=== PATIENT | female | born 1965 | race Caucasian/White ===

== ENCOUNTER → 2016-05-21 | Outpatient (CLI) | payer OTHER ==
[~2016-05-21] MED LIST: AMOXICILLIN500 MG PO; ANAPROX DS550 MG PO; ANTIVERT/2525 MG PO; AUGMENTIN 875 M1 TAB PO; BACTRIM DS 8001 TA1 PO; CATAFLAM50 MG PO; CIPRO250 MG PO; CIPRODEX 0.3%-7.5 ML OT; CIPROFLOXACIN500 MG PO; CLARITIN10 MG PO; COMPAZINE10 MG PO; CYCLOBENZAPRINE10 MG PO; CYCLOBENZAPRINE5 M3 PO; DAYPRO600 M1 PO; DIFLUCAN150 MG PO; FLAGYL500 MG PO; FLEXERIL10 MG PO; FLONASE 0.05% 121 EA NAS; FLONASE ALLERG9.9 ML NAS; FLONASE0.05 MG/AC NS; HYDROCODONE BIT1 T11 PO; IRON FERROUS S325 MG PO; LEVAQUIN750 M1 PO; LIDOCAINE HCL; LISINOPRIL; LISINOPRIL10 MG PO; LOMOTIL 0.025 M1 TA1 PO; MACROBID100 M1 PO; MEDROL DOSEPAK4 MG PO; METFORMIN500 MG PO; MOBIC7.5 MG PO; MOTRIN,RUFEN800 MG PO; MOTRIN600 MG PO; MOTRIN800 MG PO; NAPROSYN500 MG PO; OMNICEF300 MG PO; PERCOCET 325 MG1 TA2 PO; PERCOCET 325 MG1 TA6 PO; PREDNISONE10 MG PO; PROVERA10 MG PO; PROZAC20 MG PO; ROBITUSSIN AC 110 ML PO; TRAMADOL HCL50 MG PO; TRIMOX500 MG PO; VENTOLIN H0.09 MG/AC INH; VIBRAMYCIN100 MG PO; VICODIN 5/500 505 MG PO; XANAX0.25 MG PO; ZANTAC150 MG PO; ZITHROMAX Z PA250 MG PO; ZOFRAN ODT4 MG SL; ZYRTEC10 M2 PO; ZYRTEC10 MG PO
== END | disposition home or self-care (01) ==
LOC: RAD 17:18
DX: M54.2 Cervicalgia (principal)

== ENCOUNTER → 2016-05-31 | Outpatient (CLI) | payer OTHER ==
[~2016-05-31] MED LIST changes: +FERROUS SULFAT324 M1 PO; +ZOCOR20 MG PO
--- NOTE | ~2016-05-31 | ST ---
[place], [place] EXERCISE STRESS TEST REPORT NAME: VALERIE HENSLEY UNIT #: [id number] ROOM: DOCTOR: TETE HANNA MD BIRTHDATE: [birth year] DOS: 05/31/2016 PHARMACOLOGIC MYOCARDIAL STRESS TEST INDICATIONS: Chest pressure, diabetes, cigarette abuse, chronic left bundle branch block. PROCEDURE: The patient was given a rapid infusion of regadenoson 0.4 mg intravenously followed by a saline flush. She experienced headache, breathlessness and nausea. Symptoms resolved spontaneously. Her resting heart rate of 70 penny to 113. The resting blood pressure of 144/96 fell to 136/88. She was in left bundle branch block throughout the study. 40 seconds after the infusion of regadenoson, she was given radionuclide intravenously. IMPRESSION: 1. Well tolerated infusion of regadenoson. 2. Left bundle branch block. 3. Radionuclide injected. Please see the separate imaging report for further details of the patient's stress test results. TETE HANNA MD CM:STRESS:EXERCISE STRESS TEST REPORT [id number] TETE HANNA MD
== END | disposition home or self-care (01) ==
LOC: CARD 05-30 13:09
DX: I44.7 Left bundle-branch block, unspecified (principal); E11.9 Type 2 diabetes mellitus without complications; R07.2 Precordial pain; R07.89 Other chest pain; M54.2 Cervicalgia; I51.9 Heart disease, unspecified; Z72.0 Tobacco use

== ENCOUNTER 2016-06-08 07:44 | Emergency (ER) | payer OTHER ==
[2016-06-08 09:20] VITALS: BP 152/84
[2016-06-08] MEDS ORDERED: IBUPROFEN600 MG PO (09:39)
== END 2016-06-08 09:46 | disposition home or self-care (01) ==
LOC: ED 07:44
DX: S63.502A Unspecified sprain of left wrist, initial encounter (principal); F17.200 Nicotine dependence, unspecified, uncomplicated; Z98.51 Tubal ligation status; Z90.49 Acquired absence of other specified parts of digestive tract; Z79.899 Other long term (current) drug therapy; W17.89XA Other fall from one level to another, initial encounter; Y93.44 Activity, trampolining; Y92.89 Other specified places as the place of occurrence of the external cause; Y99.9 Unspecified external cause status

== ENCOUNTER 2016-06-23 09:02 | Emergency (ER) | payer OTHER ==
[~2016-06-23 09:02] MED LIST changes: +IBUPROFEN600 MG PO
[2016-06-23 09:21] LABS: BILIRUBIN NEGATIVE (NEGATIVE); BLOOD 1+ (NEGATIVE); CLARITY CLOUDY (CLEAR); COLOR STRAW (YELLOW); GLUCOSE NEGATIVE (NEGATIVE); KETONE NEGATIVE (NEGATIVE); LEUKO ESTERASE 3+ (NEGATIVE); NITRITE NEGATIVE (NEGATIVE); PROTEIN NEGATIVE (NEGATIVE); SPECIFIC GRAVITY <= 1.005 (1.005-1.030); UROBILINOGEN 0.2 E.U./dl (0.2-1.0)
[2016-06-23 09:32] LABS: BACTERIA 1+; EPITHELIAL CELLS 20-30; URINE REFLEX COMMENT YES (NO); WBC 31-40 wbc/hpf (0-5)
[2016-06-23] MEDS ORDERED: MACROBID100 M1 PO (09:36)
[2016-06-23 09:42] VITALS: BP 160/90
== END 2016-06-23 09:43 | disposition home or self-care (01) ==
LOC: ED 09:02
PROVIDERS: Nurse Practitioner Family
DX: N39.0 Urinary tract infection, site not specified (principal); R03.0 Elevated blood-pressure reading, without diagnosis of hypertension; F17.200 Nicotine dependence, unspecified, uncomplicated; Z90.49 Acquired absence of other specified parts of digestive tract

== ENCOUNTER 2016-08-24 19:40 | Emergency (ER) | payer OTHER ==
[~2016-08-24] VITALS: Ht 154.9 cm; Wt 72.6 kg
[2016-08-24 19:53] VITALS: BP 140/80
[2016-08-24] MEDS ORDERED: CYCLOBENZAPRINE10 MG PO (20:03)
[2016-08-24] MEDS ORDERED: PREDNISONE10 MG PO (20:03)
== END 2016-08-24 20:11 | disposition home or self-care (01) ==
LOC: ED 19:40
DX: L25.9 Unspecified contact dermatitis, unspecified cause (principal); M54.30 Sciatica, unspecified side; M25.552 Pain in left hip; F17.200 Nicotine dependence, unspecified, uncomplicated; Z79.899 Other long term (current) drug therapy

== ENCOUNTER → 2016-12-05 | Outpatient (CLI) | payer OTHER | END | disposition home or self-care (01) | LOC: RAD 13:21 | DX: M47.896 Other spondylosis, lumbar region (principal); M41.84 Other forms of scoliosis, thoracic region; M41.86 Other forms of scoliosis, lumbar region; M48.07 Spinal stenosis, lumbosacral region; M16.12 Unilateral primary osteoarthritis, left hip; M76.9 Unspecified enthesopathy, lower limb, excluding foot ==

== ENCOUNTER 2016-12-06 16:58 | Emergency (ER) | payer OTHER ==
[~2016-12-06] VITALS: Ht 154.9 cm; Wt 70.3 kg
[2016-12-06 17:01] VITALS: BP 161/90
== END 2016-12-06 19:45 | disposition home or self-care (01) ==
LOC: ED 16:58
DX: S71.112A Laceration without foreign body, left thigh, initial encounter (principal); F17.200 Nicotine dependence, unspecified, uncomplicated; W25.XXXA Contact with sharp glass, initial encounter; Y93.9 Activity, unspecified; Y92.9 Unspecified place or not applicable; Y99.9 Unspecified external cause status

== ENCOUNTER 2016-12-16 09:08 | Emergency (ER) | payer OTHER ==
[~2016-12-16] VITALS: Ht 154.9 cm; Wt 70.3 kg
[2016-12-16 09:13] VITALS: BP 155/90
[2016-12-16] MEDS ORDERED: FLONASE ALLERG9.9 ML NS (09:23)
[2016-12-16] MEDS ORDERED: AUGMENTIN 875875 MG PO (09:23)
== END 2016-12-16 10:12 | disposition home or self-care (01) ==
LOC: ED 09:08
DX: S81.812D Laceration without foreign body, left lower leg, subsequent encounter (principal); X58.XXXD Exposure to other specified factors, subsequent encounter; J01.90 Acute sinusitis, unspecified; F17.200 Nicotine dependence, unspecified, uncomplicated; Z79.84 Long term (current) use of oral hypoglycemic drugs; Z79.899 Other long term (current) drug therapy

== ENCOUNTER → 2016-12-23 | Day surgery (SDC) | payer OTHER ==
[~2016-12-23] VITALS: Ht 154.9 cm; Wt 70.3 kg
[~2016-12-23] MED LIST changes: +AUGMENTIN 875875 MG PO; +FLONASE ALLERG9.9 ML NS
[2016-12-23 07:35] VITALS: BP 134/65
[2016-12-23 08:48] VITALS: BP 98/50
[2016-12-23 09:03] VITALS: BP 117/79
[2016-12-23 09:18] VITALS: BP 136/65
== END | disposition home or self-care (01) ==
LOC: SDC 12-19 13:15
DX: Z12.11 Encounter for screening for malignant neoplasm of colon (principal); I10 Essential (primary) hypertension; F32.9 Major depressive disorder, single episode, unspecified; E11.9 Type 2 diabetes mellitus without complications; F41.9 Anxiety disorder, unspecified; E78.5 Hyperlipidemia, unspecified; F17.210 Nicotine dependence, cigarettes, uncomplicated; Z98.51 Tubal ligation status; Z98.890 Other specified postprocedural states; Z83.3 Family history of diabetes mellitus; Z79.899 Other long term (current) drug therapy; Z90.49 Acquired absence of other specified parts of digestive tract

== ENCOUNTER 2017-01-17 10:21 | Emergency (ER) | payer OTHER ==
[~2017-01-17] VITALS: Ht 154.9 cm; Wt 74.8 kg
[2017-01-17 10:24] VITALS: BP 113/81
[2017-01-17] MEDS ORDERED: NAPROSYN500 MG PO (10:27)
== END 2017-01-17 12:33 | disposition home or self-care (01) ==
LOC: ED 10:21
DX: S93.401A Sprain of unspecified ligament of right ankle, initial encounter (principal); F17.200 Nicotine dependence, unspecified, uncomplicated; Z98.51 Tubal ligation status; Z90.49 Acquired absence of other specified parts of digestive tract; Z79.899 Other long term (current) drug therapy; X50.1XXA Overexertion from prolonged static or awkward postures, initial encounter; Y93.89 Activity, other specified; Y92.89 Other specified places as the place of occurrence of the external cause; Y99.9 Unspecified external cause status

== ENCOUNTER 2017-03-11 12:28 | Emergency (ER) | payer OTHER ==
[~2017-03-11] VITALS: Ht 154.9 cm; Wt 74.8 kg
[2017-03-11 12:37] VITALS: BP 148/89
[2017-03-11] MEDS ORDERED: LEVOFLOXACIN500 MG PO (13:13)
[2017-03-11] MEDS ORDERED: DIFLUCAN150 MG PO (13:13)
== END 2017-03-11 13:48 | disposition home or self-care (01) ==
LOC: ED 12:28
DX: J32.9 Chronic sinusitis, unspecified (principal); F17.200 Nicotine dependence, unspecified, uncomplicated; Z90.49 Acquired absence of other specified parts of digestive tract; Z79.84 Long term (current) use of oral hypoglycemic drugs; Z79.899 Other long term (current) drug therapy

== ENCOUNTER 2017-03-22 09:45 | Emergency (ER) | payer OTHER ==
[~2017-03-22] VITALS: Ht 154.9 cm; Wt 72.6 kg
[~2017-03-22 09:45] MED LIST changes: +LEVOFLOXACIN500 MG PO
[2017-03-22 09:50] VITALS: BP 146/83
[2017-03-22] MEDS ORDERED: NAPROSYN500 MG PO (09:57)
[2017-03-22] MEDS ORDERED: CHLORZOXAZONE500 M2 PO (09:57)
== END 2017-03-22 11:06 | disposition home or self-care (01) ==
LOC: ED 09:45
DX: M54.2 Cervicalgia (principal); R03.0 Elevated blood-pressure reading, without diagnosis of hypertension; F17.200 Nicotine dependence, unspecified, uncomplicated; Z79.899 Other long term (current) drug therapy

== ENCOUNTER 2017-05-05 15:25 | Emergency (ER) | payer OTHER ==
[~2017-05-05] VITALS: Ht 152.4 cm; Wt 74.8 kg
[~2017-05-05 15:25] MED LIST changes: +CHLORZOXAZONE500 M2 PO
[2017-05-05 15:29] VITALS: BP 157/70
[2017-05-05] MEDS ORDERED: CLARITIN10 MG PO (15:29)
[2017-05-05] MEDS ORDERED: FLONASE ALLERG9.9 ML NAS (15:29)
== END 2017-05-05 15:32 | disposition home or self-care (01) ==
LOC: ED 15:25
DX: J30.2 Other seasonal allergic rhinitis (principal); R03.0 Elevated blood-pressure reading, without diagnosis of hypertension; H92.01 Otalgia, right ear; Z79.899 Other long term (current) drug therapy

== ENCOUNTER 2017-11-01 13:29 | Emergency (ER) | payer OTHER ==
[~2017-11-01] VITALS: Ht 154.9 cm; Wt 70.3 kg
[2017-11-01 13:31] VITALS: BP 125/72
[2017-11-01] MEDS ORDERED: [UNRECOGNIZED DRUG - OTHER] PO (14:47)
== END 2017-11-01 14:58 | disposition home or self-care (01) ==
LOC: ED 13:29
DX: J20.9 Acute bronchitis, unspecified (principal); E11.9 Type 2 diabetes mellitus without complications; F17.200 Nicotine dependence, unspecified, uncomplicated; Z90.49 Acquired absence of other specified parts of digestive tract; Z79.899 Other long term (current) drug therapy; I10 Essential (primary) hypertension; E78.00 Pure hypercholesterolemia, unspecified

== ENCOUNTER → 2018-03-13 | Outpatient (CLI) | payer OTHER ==
[~2018-03-13] MED LIST changes: +ALOGLIPTIN25 MG PO; +GLIPIZIDE XL2.5 M1 PO; -LISINOPRIL10 MG PO; +VITAMIN D2 PO; +ZESTRIL40 MG PO; +[UNRECOGNIZED DRUG - OTHER] PO
--- NOTE | ~2018-03-13 | EKG ---
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
== END | disposition home or self-care (01) ==
LOC: RAD 12:27
DX: M25.552 Pain in left hip (principal); I10 Essential (primary) hypertension

== ENCOUNTER → 2018-03-30 | Outpatient (CLI) | payer OTHER | END | disposition home or self-care (01) | LOC: RAD 11:52 | DX: M47.896 Other spondylosis, lumbar region (principal); M12.88 Other specific arthropathies, not elsewhere classified, other specified site ==

== ENCOUNTER → 2018-04-30 | Outpatient (CLI) | payer OTHER ==
--- NOTE | ~2018-04-30 | ST ---
[place], [place] EXERCISE STRESS TEST REPORT NAME: VALERIE HENSLEY UNIT #: [id number] ROOM: DOCTOR: MICHAEL YING [facility],JESSICA BIRTHDATE: [birth year] DOS: 04/30/2018 STRESS CARDIOLITE The patient underwent stress test on stage 3 Jesse up to 10 METS and up to 85% max. heart rate. No ischemic changes noted. Complete left bundle block, difficult to comment and x-rays are made after injecting the isotope. Myocardial perfusion scan to follow. JESSICA RODRIGUEZ MD CM:STRESS:EXERCISE STRESS TEST REPORT [id number] JESSICA RODRIGUEZ MD [facility]
--- NOTE | 2018-04-30 12:50 | NUR ---
INFORMED CONSENT SIGNED FOR CARDIOLYTE STRESS TEST WITH DR. RODRIGUEZ. RESTING EKG LBBB, HR 70, BP 120/70. COMPLETED 9:00 OF A STANDARD EJ PROTOCOL COMPLETING 3:00 STAGE III, 3.4MPH/14% GRADE. PEAK HEART RATE OF 147 ACHIEVED WHICH IS 88% PREDICTED MAXIMUM AND A PEAK BP OF 132/70. NO ARRHYTHMIAS OR ST CHANGES NOTED. HAS A GOOD EXERCISE TOLERANCE. LAST RECOVERY HR 99, BP 100/68. WAITING NUCLEAR SCANNING IN STABLE CONDITION.
== END | disposition home or self-care (01) ==
LOC: CARD 02:42
DX: R07.89 Other chest pain (principal)

== ENCOUNTER → 2018-05-14 | Outpatient (CLI) | payer OTHER | END | disposition home or self-care (01) | LOC: MAMMO 11:28 | DX: Z12.31 Encounter for screening mammogram for malignant neoplasm of breast (principal) ==

== ENCOUNTER → 2018-10-26 | Outpatient (CLI) | payer OTHER | END | disposition home or self-care (01) | LOC: RAD 21:02 | DX: M47.816 Spondylosis without myelopathy or radiculopathy, lumbar region (principal); M25.552 Pain in left hip ==

== ENCOUNTER → 2019-01-07 | Outpatient (CLI) | payer OTHER ==
[2019-01-07 08:51] LABS: BASO # 0.1 10*3/uL (0.0-0.1); BASO % 0.6 % (0.0-1.0); EOS # 0.4 10*3/uL (0.0-0.4); EOS % 3.9 % (1.0-4.0); HEMATOCRIT 43.7 % (37.0-47.0); HEMOGLOBIN 13.9 g/dl (12.0-16.0); LYMPH # 2.4 10*3/uL (1.3-4.4); MEAN CORPUSCULAR HGB 29.9 pg (27.0-31.0); MEAN CORPUSCULAR HGB CONC 31.8 g/dl (33.0-37.0); MEAN PLATELET VOLUME 10.9 fl (9.6-12.3); MONO # 0.9 10*3/uL (0.1-1.0); MONO % 7.8 % (3.0-9.0); NEUT % 65.1 % (47.0-73.0); PLATELET COUNT AUTOMATED 198 10*3/uL (130-400); RED BLOOD COUNT 4.65 10*6/uL (4.10-5.10); RED CELL DISTRI WIDTH 12.3 % (0-14.5); WHITE BLOOD COUNT 10.8 10*3/uL (4.8-10.8)
[2019-01-07 09:04] LABS: ALBUMIN 3.7 gm/dl (3.1-4.5); ALKALINE PHOSPHATASE 68 U/L (45-117); BUN 17 mg/dl (7-24); CHLORIDE 107 mmol/L (98-107); CHOLESTEROL 185 mg/dL (<200); CREATININE 0.79 mg/dL (0.55-1.02); HDL CHOLESTEROL 42 mg/dl (40-60); IRON 73 ug/dL (50-170); LDL CHOLESTEROL 122 mg/dL (9-159); POTASSIUM 4.3 mmol/L (3.5-5.1); SGOT/AST 19 IU/L (3-35); SGPT/ALT 27 U/L (12-78); SODIUM 138 mmol/L (136-145); TOTAL IRON BINDING CAPACITY 361 ug/dl (250-450); TOTAL PROTEIN 7.1 gm/dL (6.4-8.2); TRIGLYCERIDES 105 mg/dl (<150); VLDL CHOLESTEROL 21 mg/dL (6-40)
[2019-01-07 10:15] LABS: FERRITIN 108.7 ng/mL (10.0-291.0); VITAMIN D, 25-HYDROXY 27.4 ng/mL (30-100)
[2019-01-08 10:09] LABS: CREATININE,URINE 23.6 mg/dL (Not Estab.); MICRO ALBUMIN/CRE RATIO <12.7 (0.0-30.0)
== END | disposition home or self-care (01) ==
LOC: LAB 08:22 → CT 09:00
PROVIDERS: Nurse Practitioner Family
DX: E11.9 Type 2 diabetes mellitus without complications (principal); E78.2 Mixed hyperlipidemia; I10 Essential (primary) hypertension; E55.9 Vitamin D deficiency, unspecified; E61.1 Iron deficiency; R91.8 Other nonspecific abnormal finding of lung field

== ENCOUNTER 2019-04-12 09:49 | Emergency (ER) | payer OTHER ==
[~2019-04-12] VITALS: Ht 154.9 cm; Wt 74.8 kg
[2019-04-12 09:53] VITALS: BP 145/94
[2019-04-12] MEDS ORDERED: IBU800 MG PO (12:47)
== END 2019-04-12 12:54 | disposition home or self-care (01) ==
LOC: ED 09:49
DX: S93.402A Sprain of unspecified ligament of left ankle, initial encounter (principal); F41.9 Anxiety disorder, unspecified; F32.9 Major depressive disorder, single episode, unspecified; I10 Essential (primary) hypertension; E11.9 Type 2 diabetes mellitus without complications; E78.00 Pure hypercholesterolemia, unspecified; F17.200 Nicotine dependence, unspecified, uncomplicated; Z79.899 Other long term (current) drug therapy; Z79.84 Long term (current) use of oral hypoglycemic drugs; W10.9XXA Fall (on) (from) unspecified stairs and steps, initial encounter; Y93.89 Activity, other specified; Y92.89 Other specified places as the place of occurrence of the external cause; Y99.8 Other external cause status

== ENCOUNTER 2019-10-01 16:35 | Emergency (ER) | payer OTHER ==
[~2019-10-01 16:35] MED LIST changes: +IBU800 MG PO
[2019-10-01 17:12] VITALS: BP 129/64
== END 2019-10-01 19:24 | disposition home or self-care (01) ==
LOC: ED 16:35
DX: G56.01 Carpal tunnel syndrome, right upper limb (principal); Z79.899 Other long term (current) drug therapy

== ENCOUNTER 2020-05-26 15:03 | Emergency (ER) | payer OTHER ==
[~2020-05-26] VITALS: Ht 154.9 cm; Wt 72.6 kg
[2020-05-26 15:16] VITALS: BP 123/54
[2020-05-26] MEDS ORDERED: AMOXICILLIN500 M2 PO (15:32)
[2020-05-26] MEDS ORDERED: FLONASE ALLERG9.9 ML NS (15:32)
[2020-05-26] MEDS ORDERED: CETIRIZINE10 MG PO (15:33)
== END 2020-05-26 15:44 | disposition home or self-care (01) ==
LOC: ED 15:03
DX: J32.9 Chronic sinusitis, unspecified (principal); Z90.49 Acquired absence of other specified parts of digestive tract; Z79.899 Other long term (current) drug therapy

== ENCOUNTER → 2020-06-02 | Outpatient (CLI) | payer OTHER ==
[~2020-06-02] MED LIST changes: +AMOXICILLIN500 M2 PO; +CETIRIZINE10 MG PO
== END | disposition home or self-care (01) ==
LOC: MRI 08:32
PROVIDERS: ATTEND Nurse Practitioner Family
DX: M51.36 Other intervertebral disc degeneration, lumbar region (principal); M48.061 Spinal stenosis, lumbar region without neurogenic claudication

== ENCOUNTER 2020-07-23 18:41 | Emergency (ER) | payer OTHER ==
[~2020-07-23] VITALS: Wt 73.5 kg
[2020-07-23 18:48] VITALS: BP 139/79
[2020-07-23] MEDS ORDERED: NAPROSYN500 MG PO (20:15)
== END 2020-07-23 20:19 | disposition home or self-care (01) ==
LOC: ED 18:41
DX: M25.512 Pain in left shoulder (principal); Z79.899 Other long term (current) drug therapy; Z79.84 Long term (current) use of oral hypoglycemic drugs; W19.XXXA Unspecified fall, initial encounter; Y93.89 Activity, other specified; Y92.89 Other specified places as the place of occurrence of the external cause; Y99.8 Other external cause status

== ENCOUNTER 2020-09-12 18:21 | Emergency (ER) | payer OTHER ==
[~2020-09-12] VITALS: Ht 154.9 cm; Wt 72.6 kg
[2020-09-12 19:11] VITALS: BP 159/87
== END 2020-09-12 21:49 | disposition home or self-care (01) ==
LOC: ED 18:21
DX: M25.512 Pain in left shoulder (principal); Z79.2 Long term (current) use of antibiotics; Z79.899 Other long term (current) drug therapy; Z90.49 Acquired absence of other specified parts of digestive tract

== ENCOUNTER → 2020-10-02 | Outpatient (CLI) | payer OTHER ==
[~2020-10-02] MED LIST changes: +CEFUROXIME AXE500 MG PO
== END | disposition home or self-care (01) ==
LOC: MRI 12:47
PROVIDERS: ATTEND Orthopaedic Surgery
DX: S40.012A Contusion of left shoulder, initial encounter (principal); M75.122 Complete rotator cuff tear or rupture of left shoulder, not specified as traumatic; S41.012A Laceration without foreign body of left shoulder, initial encounter; M19.012 Primary osteoarthritis, left shoulder; M89.8X1 Other specified disorders of bone, shoulder; M75.82 Other shoulder lesions, left shoulder; M25.412 Effusion, left shoulder; M75.42 Impingement syndrome of left shoulder; M25.812 Other specified joint disorders, left shoulder; R59.0 Localized enlarged lymph nodes; X58.XXXA Exposure to other specified factors, initial encounter; Y93.89 Activity, other specified; Y92.89 Other specified places as the place of occurrence of the external cause; Y99.8 Other external cause status

== ENCOUNTER 2020-10-12 15:14 | Emergency (ER) | payer OTHER ==
[~2020-10-12] VITALS: Ht 154.9 cm; Wt 69.9 kg
[~2020-10-12 15:14] MED LIST changes: -CEFUROXIME AXE500 MG PO
[2020-10-12 15:22] VITALS: BP 117/57
[2020-10-12 16:20] LABS: BILIRUBIN Negative (Negative); BLOOD 3+ (Negative); CLARITY Cloudy (Clear); COLOR Yellow (Yellow); GLUCOSE Negative (Negative); KETONE Trace (Negative); LEUKO ESTERASE 2+ (Negative); NITRITE Positive (Negative); PH 5.5 (4.5-8.0); SPECIFIC GRAVITY 1.025 (1.001-1.030)
[2020-10-12 16:33] LABS: EPITHELIAL CELLS 16-20; RBC 16-20 rbc/hpf (0-2); WBC 51-100 wbc/hpf (0-5)
[2020-10-12 16:34] LABS: BACTERIA 4+
[2020-10-12] MEDS ORDERED: CEFUROXIME AXE500 MG PO (16:51)
== END 2020-10-12 17:15 | disposition home or self-care (01) ==
LOC: ED 15:14
PROVIDERS: Physician Assistant
DX: N39.0 Urinary tract infection, site not specified (principal); Z79.899 Other long term (current) drug therapy

== ENCOUNTER → 2020-10-12 | Outpatient (CLI) | payer OTHER | END | disposition home or self-care (01) | LOC: CARD 08:42 | PROVIDERS: ATTEND Nurse Practitioner Family | DX: I44.7 Left bundle-branch block, unspecified (principal); I49.3 Ventricular premature depolarization; I10 Essential (primary) hypertension ==

== ENCOUNTER → 2020-11-27 | Outpatient (CLI) | payer OTHER ==
[~2020-11-27] MED LIST changes: +CEFUROXIME AXE500 MG PO
== END | disposition home or self-care (01) ==
LOC: CARD 10:30
PROVIDERS: ATTEND Internal Medicine Cardiovascular Disease
DX: Z01.810 Encounter for preprocedural cardiovascular examination (principal); I10 Essential (primary) hypertension; E11.9 Type 2 diabetes mellitus without complications; I44.7 Left bundle-branch block, unspecified; R94.31 Abnormal electrocardiogram [ECG] [EKG]; Z72.0 Tobacco use

== ENCOUNTER 2021-01-04 16:41 | Inpatient (IN) | payer OTHER ==
[~2021-01-04] VITALS: Wt 90.7 kg
[2021-01-04 16:44] VITALS: BP 166/90
[2021-01-04 17:00] LABS: BASO % 0.2 % (0.0-1.0); EOS % 0.1 % (1.0-4.0); HEMATOCRIT 38.8 % (37.0-47.0); LYMPH # 0.9 10*3/uL (1.3-4.4); LYMPH % 8.6 % (27.0-41.0); MEAN CELL VOLUME 92.4 fl (81.0-99.0); MEAN CORPUSCULAR HGB 30.2 pg (27.0-31.0); MEAN CORPUSCULAR HGB CONC 32.7 g/dl (33.0-37.0); MEAN PLATELET VOLUME 10.6 fl (9.6-12.3); MONO # 0.1 10*3/uL (0.1-1.0); MONO % 1.3 % (3.0-9.0); NEUT # 9.7 10*3/uL (2.3-7.9); NEUT % 89.2 % (47.0-73.0); PLATELET COUNT AUTOMATED 174 10*3/uL (130-400); RED CELL DISTRI WIDTH 12.2 % (0-14.5); WHITE BLOOD COUNT 10.9 10*3/uL (4.8-10.8)
[2021-01-04 17:16] LABS: ALBUMIN 3.2 gm/dl (3.1-4.5); ALKALINE PHOSPHATASE 67 U/L (45-117); BUN 13 mg/dl (7-24); CHLORIDE 112 mmol/L (98-107); CREATININE 0.72 mg/dL (0.55-1.02); POTASSIUM 4.1 mmol/L (3.5-5.1); SGOT/AST 15 IU/L (3-35); SGPT/ALT 23 U/L (12-78); SODIUM 140 mmol/L (136-145); TOTAL PROTEIN 6.6 gm/dL (6.4-8.2)
[2021-01-04 17:22] LABS: TROPONIN I < 0.015 ng/ml (<0.045)
[2021-01-04 17:39] VITALS: BP 175/99
[2021-01-04 19:55] VITALS: BP 159/96
== END 2021-01-05 01:17 | disposition left against medical advice (07) | DRG 203 ==
LOC: ED 16:41 → EDHOLD 18:32
PROVIDERS: Emergency Medicine; ADMIT Family Medicine; ATTEND Family Medicine
DX: R07.9 Chest pain, unspecified (principal); Z88.1 Allergy status to other antibiotic agents; Z79.899 Other long term (current) drug therapy; Z87.440 Personal history of urinary (tract) infections; Z87.01 Personal history of pneumonia (recurrent); Z90.49 Acquired absence of other specified parts of digestive tract; Z82.49 Family history of ischemic heart disease and other diseases of the circulatory system; Z83.3 Family history of diabetes mellitus

== ENCOUNTER → 2021-01-04 | Day surgery (SDC) | payer OTHER ==
[2021-01-01 12:01] LABS: BASO # 0.1 10*3/uL (0.0-0.1); BASO % 0.9 % (0.0-1.0); EOS # 0.4 10*3/uL (0.0-0.4); EOS % 4.2 % (1.0-4.0); HEMATOCRIT 42.8 % (37.0-47.0); LYMPH # 3.1 10*3/uL (1.3-4.4); LYMPH % 34.1 % (27.0-41.0); MEAN CELL VOLUME 91.3 fl (81.0-99.0); MEAN CORPUSCULAR HGB 29.4 pg (27.0-31.0); MEAN CORPUSCULAR HGB CONC 32.2 g/dl (33.0-37.0); MEAN PLATELET VOLUME 10.9 fl (9.6-12.3); MONO # 0.6 10*3/uL (0.1-1.0); MONO % 6.4 % (3.0-9.0); NEUT # 4.8 10*3/uL (2.3-7.9); NEUT % 54.1 % (47.0-73.0); PLATELET COUNT AUTOMATED 182 10*3/uL (130-400); RED BLOOD COUNT 4.69 10*6/uL (4.10-5.10); RED CELL DISTRI WIDTH 12.2 % (0-14.5)
[2021-01-01 12:33] LABS: CHLORIDE 109 mmol/L (98-107); POTASSIUM 4.4 mmol/L (3.5-5.1); SODIUM 142 mmol/L (136-145)
[2021-01-01 12:37] LABS: BUN 9 mg/dl (7-24); CREATININE 0.68 mg/dL (0.55-1.02)
[~2021-01-04] VITALS: Ht 154.9 cm; Wt 68.5 kg
[2021-01-04] VITALS (7 sets, daily range): BP systolic 103–143; BP diastolic 44–823
[~2021-01-04] MED LIST changes: +HYDROCODONE-AC1 EAC1 PO; +TRULICITY0.75 MG/0. SC
== END | disposition home or self-care (01) ==
LOC: SDC 01-01 10:45
PROVIDERS: ATTEND Orthopaedic Surgery
DX: M75.122 Complete rotator cuff tear or rupture of left shoulder, not specified as traumatic (principal); M75.42 Impingement syndrome of left shoulder; Z98.51 Tubal ligation status; I10 Essential (primary) hypertension; E11.9 Type 2 diabetes mellitus without complications; F17.210 Nicotine dependence, cigarettes, uncomplicated; M54.12 Radiculopathy, cervical region; F32.9 Major depressive disorder, single episode, unspecified; F41.9 Anxiety disorder, unspecified; Z79.899 Other long term (current) drug therapy; Z20.822 Contact with and (suspected) exposure to COVID-19

== ENCOUNTER 2021-02-19 19:46 | Emergency (ER) | payer OTHER ==
[2021-02-19 20:12] LABS: BILIRUBIN Negative (Negative); BLOOD 3+ (Negative); CLARITY Cloudy (Clear); COLOR Yellow (Yellow); GLUCOSE Negative (Negative); KETONE Negative (Negative); LEUKO ESTERASE 3+ (Negative); NITRITE Negative (Negative); PH 6.5 (4.5-8.0)
[2021-02-19 20:15] VITALS: BP 158/80
[2021-02-19 20:30] LABS: BACTERIA 2+; RBC TNTC rbc/hpf (0-2); WBC TNTC wbc/hpf (0-5)
[2021-02-19] MEDS ORDERED: CIPRO500 MG PO (20:45)
== END 2021-02-19 20:58 | disposition home or self-care (01) ==
LOC: ED 19:46
PROVIDERS: Internal Medicine
DX: N39.0 Urinary tract infection, site not specified (principal); Z88.1 Allergy status to other antibiotic agents; Z79.899 Other long term (current) drug therapy

== ENCOUNTER → 2021-02-28 | Outpatient (CLI) | payer OTHER ==
[~2021-02-28] MED LIST changes: +CIPRO500 MG PO
== END | disposition home or self-care (01) ==
LOC: ORTHO 00:29
PROVIDERS: ATTEND Orthopaedic Surgery
DX: M75.122 Complete rotator cuff tear or rupture of left shoulder, not specified as traumatic (principal); M47.812 Spondylosis without myelopathy or radiculopathy, cervical region

== ENCOUNTER 2021-03-17 16:48 | Emergency (ER) | payer OTHER ==
[~2021-03-17] VITALS: Ht 154.9 cm; Wt 68.0 kg
[2021-03-17 17:48] VITALS: BP 137/87
== END 2021-03-17 19:57 | disposition home or self-care (01) ==
LOC: ED 16:48
DX: S40.022A Contusion of left upper arm, initial encounter (principal); I10 Essential (primary) hypertension; E11.9 Type 2 diabetes mellitus without complications; Z88.1 Allergy status to other antibiotic agents; Z79.899 Other long term (current) drug therapy; Z98.51 Tubal ligation status; Z90.49 Acquired absence of other specified parts of digestive tract; Z98.890 Other specified postprocedural states; W22.8XXA Striking against or struck by other objects, initial encounter; Y93.89 Activity, other specified; Y92.89 Other specified places as the place of occurrence of the external cause; Y99.8 Other external cause status

== ENCOUNTER → 2021-05-07 | Outpatient (CLI) | payer OTHER ==
[2021-05-07 09:25] LABS: BASO # 0.1 10*3/uL (0.0-0.1); BASO % 0.5 % (0.0-1.0); EOS # 0.4 10*3/uL (0.0-0.4); EOS % 3.8 % (1.0-4.0); HEMATOCRIT 42.9 % (37.0-47.0); LYMPH # 2.8 10*3/uL (1.3-4.4); LYMPH % 25.6 % (27.0-41.0); MEAN CELL VOLUME 88.8 fl (81.0-99.0); MEAN CORPUSCULAR HGB 29.6 pg (27.0-31.0); MEAN CORPUSCULAR HGB CONC 33.3 g/dl (33.0-37.0); MEAN PLATELET VOLUME 10.3 fl (9.6-12.3); MONO # 0.7 10*3/uL (0.1-1.0); MONO % 6.5 % (3.0-9.0); NEUT # 6.9 10*3/uL (2.3-7.9); NEUT % 63.2 % (47.0-73.0); PLATELET COUNT AUTOMATED 225 10*3/uL (130-400); RED BLOOD COUNT 4.83 10*6/uL (4.10-5.10); RED CELL DISTRI WIDTH 11.8 % (0-14.5); WHITE BLOOD COUNT 10.9 10*3/uL (4.8-10.8)
[2021-05-07 09:45] LABS: ALKALINE PHOSPHATASE 89 U/L (45-117); BUN 10 mg/dl (7-24); CHLORIDE 106 mmol/L (98-107); CHOLESTEROL 178 mg/dL (<200); CREATININE 0.81 mg/dL (0.55-1.02); LDL CHOLESTEROL 112 mg/dL (9-159); POTASSIUM 4.7 mmol/L (3.5-5.1); SGOT/AST 17 IU/L (3-35); SGPT/ALT 22 U/L (12-78); SODIUM 136 mmol/L (136-145); TOTAL PROTEIN 7.3 gm/dL (6.4-8.2); TRIGLYCERIDES 112 mg/dl (<150)
== END | disposition home or self-care (01) ==
LOC: LAB 09:09
PROVIDERS: ATTEND Nurse Practitioner Family
DX: I10 Essential (primary) hypertension (principal)

== ENCOUNTER 2021-06-05 08:17 | Emergency (ER) | payer OTHER ==
[~2021-06-05] VITALS: Ht 154.9 cm; Wt 68.0 kg
[2021-06-05 08:36] VITALS: BP 131/85
[2021-06-05 08:52] LABS: BILIRUBIN Negative (Negative); BLOOD 2+ (Negative); CLARITY Cloudy (Clear); COLOR Yellow (Yellow); GLUCOSE Negative (Negative); KETONE Negative (Negative); LEUKO ESTERASE 3+ (Negative); NITRITE Negative (Negative); PH 6.5 (4.5-8.0)
[2021-06-05 08:58] LABS: BACTERIA 1+; WBC TNTC wbc/hpf (0-5)
[2021-06-05] MEDS ORDERED: CEFUROXIME AXE500 MG PO (09:05)
== END 2021-06-05 09:10 | disposition home or self-care (01) ==
LOC: ED 08:17
PROVIDERS: Family Medicine
DX: N39.0 Urinary tract infection, site not specified (principal); Z88.1 Allergy status to other antibiotic agents; Z79.899 Other long term (current) drug therapy; Z90.49 Acquired absence of other specified parts of digestive tract; Z98.51 Tubal ligation status; Z90.89 Acquired absence of other organs

== ENCOUNTER 2021-06-30 19:05 | Emergency (ER) | payer OTHER ==
[2021-06-30 19:17] VITALS: BP 135/66
== END 2021-06-30 20:53 | disposition home or self-care (01) ==
LOC: ED 19:05
DX: J06.9 Acute upper respiratory infection, unspecified (principal); Z20.822 Contact with and (suspected) exposure to COVID-19; Z98.51 Tubal ligation status; Z90.49 Acquired absence of other specified parts of digestive tract; Z79.84 Long term (current) use of oral hypoglycemic drugs; Z88.1 Allergy status to other antibiotic agents

== ENCOUNTER 2021-07-04 12:12 | Emergency (ER) | payer OTHER ==
[~2021-07-04] VITALS: Wt 68.0 kg
[2021-07-04 12:25] VITALS: BP 125/67
[2021-07-04] MEDS ORDERED: LISINOPRIL40 MG PO (13:47)
[2021-07-04] MEDS ORDERED: METFORMIN HYDR500 MG PO (13:48)
[2021-07-04] MEDS ORDERED: PREDNISONE20 M1 PO (13:58)
== END 2021-07-04 14:11 | disposition home or self-care (01) ==
LOC: ED 12:12
DX: J40 Bronchitis, not specified as acute or chronic (principal); Z20.822 Contact with and (suspected) exposure to COVID-19; F17.200 Nicotine dependence, unspecified, uncomplicated; Z90.49 Acquired absence of other specified parts of digestive tract; Z98.51 Tubal ligation status; Z79.899 Other long term (current) drug therapy; Z88.1 Allergy status to other antibiotic agents

== ENCOUNTER → 2021-11-01 | Outpatient (CLI) | payer OTHER ==
[~2021-11-01] MED LIST changes: +LISINOPRIL40 MG PO; +METFORMIN HYDR500 MG PO; +PREDNISONE20 M1 PO
[2021-11-01 09:54] LABS: ALKALINE PHOSPHATASE 81 U/L (45-117); BUN 14 mg/dl (7-24); CHLORIDE 107 mmol/L (98-107); CHOLESTEROL 168 mg/dL (<200); CREATININE 0.83 mg/dL (0.55-1.02); LDL CHOLESTEROL 109 mg/dL (9-159); SGOT/AST 14 IU/L (3-35); SGPT/ALT 19 U/L (12-78); SODIUM 138 mmol/L (136-145); TOTAL PROTEIN 7.1 gm/dL (6.4-8.2); TRIGLYCERIDES 84 mg/dl (<150)
[2021-11-02 12:07] LABS: CREATININE,URINE 102.6 mg/dL (Not Estab.)
== END | disposition home or self-care (01) ==
LOC: LAB 08:59
PROVIDERS: ATTEND Nurse Practitioner Family
DX: E11.9 Type 2 diabetes mellitus without complications (principal); E78.2 Mixed hyperlipidemia; I10 Essential (primary) hypertension

== ENCOUNTER 2022-03-10 05:07 | Emergency (ER) | payer OTHER ==
[~2022-03-10] VITALS: Ht 154.9 cm; Wt 65.8 kg
[2022-03-10 05:19] VITALS: BP 163/82
[2022-03-10] MEDS ORDERED: Percocet 325 MG1 TAB PO (05:38)
== END 2022-03-10 06:02 | disposition home or self-care (01) ==
LOC: ED 05:07
DX: S30.0XXA Contusion of lower back and pelvis, initial encounter (principal); Z88.2 Allergy status to sulfonamides; Z88.8 Allergy status to other drugs, medicaments and biological substances; Z98.51 Tubal ligation status; Z90.49 Acquired absence of other specified parts of digestive tract; Z98.890 Other specified postprocedural states; W19.XXXA Unspecified fall, initial encounter; Y93.89 Activity, other specified; Y92.89 Other specified places as the place of occurrence of the external cause; Y99.8 Other external cause status

== ENCOUNTER → 2022-06-28 | Outpatient (CLI) | payer OTHER ==
[~2022-06-28] MED LIST changes: +Percocet 325 MG1 TAB PO
[2022-06-28 13:20] LABS: ALKALINE PHOSPHATASE 88 U/L (46-116); BUN 9 mg/dl (9-23); CHLORIDE 105 mmol/L (98-107); CHOLESTEROL 169 mg/dL (<200); LDL CHOLESTEROL 88 mg/dL (9-159); POTASSIUM 4.6 mmol/L (3.4-5.1); SGPT/ALT 16 U/L (10-49); TRIGLYCERIDES 198 mg/dl (<150)
== END | disposition home or self-care (01) ==
LOC: LAB 12:31
PROVIDERS: ATTEND Nurse Practitioner Family
DX: E11.9 Type 2 diabetes mellitus without complications (principal); E55.9 Vitamin D deficiency, unspecified; I10 Essential (primary) hypertension; E78.2 Mixed hyperlipidemia

== ENCOUNTER 2022-08-31 23:40 | Emergency (ER) | payer OTHER ==
[~2022-08-31] VITALS: Ht 154.9 cm; Wt 68.0 kg
[2022-08-31 23:48] VITALS: BP 138/87
[2022-08-31] MEDS ORDERED: VITAMIN D3125 MCG PO (23:51)
[2022-09-01] MEDS ORDERED: METHOCARBAMOL500 M1 PO (00:42)
[2022-09-01] MEDS ORDERED: NAPROXEN250 MG PO (00:42)
== END 2022-09-01 01:06 | disposition home or self-care (01) ==
LOC: ED 23:40
DX: S93.401A Sprain of unspecified ligament of right ankle, initial encounter (principal); M54.31 Sciatica, right side; F32.A Depression, unspecified; F41.9 Anxiety disorder, unspecified; I10 Essential (primary) hypertension; E11.9 Type 2 diabetes mellitus without complications; E78.00 Pure hypercholesterolemia, unspecified; Z88.2 Allergy status to sulfonamides; Z88.8 Allergy status to other drugs, medicaments and biological substances; Z90.49 Acquired absence of other specified parts of digestive tract; Z98.51 Tubal ligation status; Z98.890 Other specified postprocedural states; X58.XXXA Exposure to other specified factors, initial encounter; Y93.89 Activity, other specified; Y92.89 Other specified places as the place of occurrence of the external cause; Y99.8 Other external cause status

== ENCOUNTER 2022-12-13 13:47 | Emergency (ER) | payer OTHER ==
[~2022-12-13] VITALS: Ht 154.9 cm; Wt 69.9 kg
[~2022-12-13 13:47] MED LIST changes: +METHOCARBAMOL500 M1 PO; +NAPROXEN250 MG PO; +VITAMIN D3125 MCG PO
[2022-12-13 14:13] VITALS: BP 140/93
[2022-12-13] MEDS ORDERED: PREDNISONE50 MG PO (15:13)
[2022-12-13] MEDS ORDERED: LEVOFLOXACIN750 M2 PO (15:13)
== END 2022-12-13 15:33 | disposition home or self-care (01) ==
LOC: ED 13:47
DX: H66.92 Otitis media, unspecified, left ear (principal); M54.32 Sciatica, left side; H91.92 Unspecified hearing loss, left ear; M25.552 Pain in left hip; F32.A Depression, unspecified; F41.9 Anxiety disorder, unspecified; I10 Essential (primary) hypertension; E11.9 Type 2 diabetes mellitus without complications; E78.00 Pure hypercholesterolemia, unspecified; Z88.2 Allergy status to sulfonamides; Z88.8 Allergy status to other drugs, medicaments and biological substances; Z90.49 Acquired absence of other specified parts of digestive tract; Z98.51 Tubal ligation status; Z98.890 Other specified postprocedural states

== ENCOUNTER → 2023-03-17 | Outpatient (CLI) | payer OTHER ==
[~2023-03-17] MED LIST changes: +LEVOFLOXACIN750 M2 PO; +PREDNISONE50 MG PO
[2023-03-17 09:25] LABS: URINE CREATININE RANDOM 38.25 mg/dL
[2023-03-17 10:01] LABS: ALKALINE PHOSPHATASE 103 U/L (46-116); BUN 11 mg/dl (9-23); CHLORIDE 105 mmol/L (98-107); CHOLESTEROL 198 mg/dL (<200); LDL CHOLESTEROL 134 mg/dL (9-159); POTASSIUM 4.8 mmol/L (3.4-5.1); SGPT/ALT 16 U/L (5-49); TOTAL PROTEIN 7.1 gm/dL (6.0-8.0); TRIGLYCERIDES 125 mg/dl (<150)
== END | disposition home or self-care (01) ==
LOC: LAB 08:14
PROVIDERS: ATTEND Nurse Practitioner Family
DX: E11.9 Type 2 diabetes mellitus without complications (principal); E78.2 Mixed hyperlipidemia; I10 Essential (primary) hypertension

== ENCOUNTER → 2023-06-04 | Outpatient (CLI) | payer OTHER | END | disposition home or self-care (01) | LOC: MAMMO 01:05 | PROVIDERS: ATTEND Nurse Practitioner Family | DX: Z12.31 Encounter for screening mammogram for malignant neoplasm of breast (principal) ==

== ENCOUNTER 2024-03-22 08:40 | Emergency (ER) | payer OTHER ==
[~2024-03-22] VITALS: Ht 154.9 cm; Wt 61.2 kg
[2024-03-22 08:54] VITALS: BP 116/55
[2024-03-22] MEDS ORDERED: ACETAMINOPHEN 325 MG TAB PO ONE (09:00)
[2024-03-22] MEDS ORDERED: MELOXICAM15 MG PO ×2 (10:26→10:37)
== END 2024-03-22 10:51 | disposition home or self-care (01) ==
LOC: ED 08:40
DX: S82.52XA Displaced fracture of medial malleolus of left tibia, initial encounter for closed fracture (principal); F32.A Depression, unspecified; F41.9 Anxiety disorder, unspecified; I10 Essential (primary) hypertension; E11.9 Type 2 diabetes mellitus without complications; Z88.2 Allergy status to sulfonamides; Z88.8 Allergy status to other drugs, medicaments and biological substances; Z90.49 Acquired absence of other specified parts of digestive tract; Z98.890 Other specified postprocedural states; Z87.891 Personal history of nicotine dependence; X58.XXXA Exposure to other specified factors, initial encounter; Y93.89 Activity, other specified; Y92.89 Other specified places as the place of occurrence of the external cause; Y99.8 Other external cause status

== ENCOUNTER → 2024-04-19 | Outpatient (CLI) | payer OTHER ==
[~2024-04-19] MED LIST changes: +MELOXICAM15 MG PO
== END | disposition home or self-care (01) ==
LOC: MRI 04-14 09:00
PROVIDERS: ATTEND Podiatrist
DX: S96.092 Other injury of muscle and tendon of long flexor muscle of toe at ankle and foot level, left foot (principal); S86.302A Unspecified injury of muscle(s) and tendon(s) of peroneal muscle group at lower leg level, left leg, initial encounter; M19.072 Primary osteoarthritis, left ankle and foot; M25.475 Effusion, left foot; M21.072 Valgus deformity, not elsewhere classified, left ankle; X58.XXXA Exposure to other specified factors, initial encounter; Y93.89 Activity, other specified; Y92.89 Other specified places as the place of occurrence of the external cause; Y99.8 Other external cause status